=== PATIENT | female | born 1955 | race Caucasian/White ===

== ENCOUNTER 2022-12-03 06:43 | Day surgery (SDC) | payer MEDICARE, BC ==
[2022-12-03] MEDS ORDERED: Lactated Ringers 1,000 ML IV SCH (08:30)
[2022-12-03] MEDS ORDERED: fentaNYL 50 MCG/ML SDV ONE (09:00)
[2022-12-03] MEDS ORDERED: Midazolam 1 MG/ML 2 ML SDV ONE (09:00)
[2022-12-03] MEDS ORDERED: Propofol 200 MG/20 ML SDV ONE (09:00)
== END 2022-12-03 10:51 | disposition home or self-care (01) ==
LOC: JP.SDS 06:43
PROVIDERS: ATTEND Student in an Organized Health Care Education/Training Program
DX: R19.5 Other fecal abnormalities (principal); Z79.899 Other long term (current) drug therapy; Z91.018 Allergy to other foods
CPT/HCPCS: 45378; J2250; J2704; J3010; J7120